=== PATIENT | female | born 1970 | race Caucasian/White ===

== ENCOUNTER 2018-03-06 20:37 | Emergency (ER) | payer SELFPAY ==
[~2018-03-06] VITALS: Ht 154.9 cm; Wt 59.0 kg
--- NOTE | 2018-03-06 20:59 | Emergency Room Report ---
History of Present Illness General Chief Complaint: Alcohol Intoxication Source: Patient (Magdiel Mercedes MD) Present Illness HPI Patient is a 47-year-old female presented after increased altered mental status. Patient reportedly had been at a nightclub and was drinking alcohol. Patient had the reportedly ingested inevitable and subsequently began having increased confusion and lethargy. (Magdiel Mercedes MD) Allergies: Coded Allergies: No Known Allergies (Unverified , 03/06/18) Patient History Past Medical History: see triage record Last Menstrual Period: october Now: No Reviewed Nursing Documentation: PMH: Agreed; PSxH: Agreed (Magdiel Mercedes MD) Nursing Documentation-PMH Past Medical History: No Stated History (Magdiel Mercedes MD) Review of Systems All Other Systems: negative except mentioned in HPI (Magdiel Mercedes MD) Physical Exam Vital Signs Date Time Temp Pulse Resp B/P (MAP) Pulse Ox O2 Delivery O2 Flow Rate FiO2 03/06/18 20:26 99.1 90 18 123/84 99 Room Air Sp02 EP Interpretation: reviewed, normal General Appearance: normal inspection, well appearing, no apparent distress, alert Head: atraumatic ENT: normal ENT inspection, hearing grossly normal, normal voice Neck: normal inspection, full range of motion, supple, no bony tend Respiratory: normal inspection, lungs clear, normal breath sounds, no respiratory distress, no retraction, no wheezing Cardiovascular #1: regular rate, rhythm, no edema Gastrointestinal: normal inspection, normal bowel sounds, non tender, soft, no guarding, no hernia Genitourinary: no CVA tenderness Musculoskeletal: normal inspection, back normal, normal range of motion Neurologic: normal inspection, alert, responsive, speech normal Psychiatric: normal inspection, judgement/insight normal, mood/affect normal Skin: normal inspection, normal color, no rash (Magdiel Mercedes MD) Medical Decision Making Diagnostic Impression: Primary Impression: Acute alcoholic intoxication ER Course Patient presented for altered mental status. Differential diagnoses included wasn't limited to polysubstance abuse, alcohol intoxication, dehydration among others.Because of complexity of patient's case laboratory testing and imaging studies were ordered. The patient appears to be intoxicated with alcohol. The patient given IV antiemetics as well as IV fluids. (Magdiel Mercedes MD) ER Course Patient signout to me. She presents with alcohol oxygenation. She slept for several hours and it is now awake and able to walk the bathroom without a problem. She will go home by taxi. (Dakotah Miller MD) Last Vital Signs Date Time Temp Pulse Resp B/P (MAP) Pulse Ox O2 Delivery O2 Flow Rate FiO2 03/06/18 20:26 99.1 90 18 123/84 99 Room Air Status: improved (Magdiel Mercedes MD) Status: improved (Dakotah Miller MD) Disposition: HOME, SELF-CARE Condition: Stable Patient Instructions: Alcohol Intoxication, [id number] Additional Instructions: Abstain from drinking to excess. Follow-up with your Dr. in 7 days as needed. Return if worse. Magdiel Mercedes MD Mar 06, 2018 20:58 Dakotah Miller MD Mar 06, 2018 23:44
[2018-03-06] MEDS ORDERED: Sodium Chloride 500ML 500 ML IV ONE (21:15)
[2018-03-06 21:39] LABS: HEMOGLOBIN 12.7 G/DL (12.0-16.0); MEAN CORPUSCULAR VOLUME 112 FL (80-99); PLATELET COUNT 122 K/UL (150-450); RED BLOOD COUNT 3.22 M/UL (4.20-5.40); RED CELL DISTRIBUTION WIDTH 11.1 % (11.6-14.8); WHITE BLOOD COUNT 7.9 K/UL (4.8-10.8)
[2018-03-06 21:40] LABS: BASOPHILS % (AUTO) 2.1 % (0.0-2.0); EOSINOPHILS % (AUTO) 1.2 % (0.0-3.0); LYMPHOCYTES % (AUTO) 26.5 % (20.0-45.0); MONOCYTES % (AUTO) 10.4 % (1.0-10.0); NEUTROPHILS % (AUTO) 59.7 % (45.0-75.0)
[2018-03-06 21:54] LABS: ANION GAP 13 mmol/L (5-15); BLOOD UREA NITROGEN 6 mg/dL (7-18); CALCIUM 8.3 MG/DL (8.5-10.1); CARBON DIOXIDE 24 MMOL/L (21-32); CHLORIDE 100 MMOL/L (98-107); CREATININE 0.6 MG/DL (0.55-1.30); POTASSIUM 3.1 MMOL/L (3.5-5.1); SODIUM 137 MMOL/L (136-145)
[2018-03-06 22:01] VITALS: BP 106/67
[2018-03-06 22:18] LABS: ALANINE AMINOTRANSFERASE 60 U/L (12-78); ALBUMIN 3.4 G/DL (3.4-5.0); ALBUMIN/GLOBULIN RATIO 0.7 (1.0-2.7); ALKALINE PHOSPHATASE 109 U/L (46-116); ASPARTATE AMINO TRANSFERASE 160 U/L (15-37); BILIRUBIN,DIRECT 0.5 MG/DL (0.0-0.3); BILIRUBIN,TOTAL 1.1 MG/DL (0.2-1.0)
[2018-03-07 00:30] VITALS: BP 106/67
[2018-03-07 01:44] VITALS: BP 106/67
== END 2018-03-07 01:51 | disposition home or self-care (01) ==
LOC: EDBD 20:37 → EMR 20:55
DX: F10.129 Alcohol abuse with intoxication, unspecified (principal); R41.82 Altered mental status, unspecified
CPT/HCPCS: 36415; 80053; 82248; 85025; 96374; 99284; G0480; J2405; J7040; 80329